=== PATIENT | female | born 1985 | race Caucasian/White ===

== ENCOUNTER 2019-10-26 15:59 | Outpatient (CLI) | payer OTHER, SELFPAY ==
--- NOTE | ~2019-10-26 | US_ITS ---
EXAMINATION: US pelvic complete w TV EXAM DATE: 10/26/2019 16:35 INDICATION: Ovarian cyst, family history of ovarian cancer. control implant. TECHNIQUE: Pelvic transabdominal and transvaginal sonogram was performed. There are multiple graysca le and Doppler images available for interpretation. Comparison is made to prior examination from 08/23. FINDINGS: Uterus measures 6.4 x 3.6 x 4.0 cm, and is morphologically normal. Endometrial stripe samaria sures 3 mm, within normal limits. There is no free pelvic fluid. Right adnexa: The ovary measures 4.1 x 2.8 x 4.1 cm, with an anechoic cystic lesion measuring 3.7 x 2 .4 x 3.5 cm probably the dominant follicle. Ovarian vascular flow confirmed. Left adnexa: The ovary measures 2.5 x 2.6 x 2.0 cm and is morphologically normal. Ovarian vascular fl ow confirmed. IMPRESSION: Right ovarian cystic lesion most likely the dominant follicle. Optional six-week follow-u p pelvic sonogram. Reviewed, dictated and finalized at location A. IMPRESSION: Right ovarian cystic lesion most likely the dominant follicle. Opti onal six-week follow-up pelvic sonogram.
== END 2019-10-26 16:00 ==
LOC: MICIMG 15:59
PROVIDERS: Visit Provider Obstetrics & Gynecology
DX: N83.209 Unspecified ovarian cyst, unspecified side (principal)
CPT/HCPCS: 76830; 76856

== ENCOUNTER 2020-01-28 12:50 | Outpatient (CLI) | payer OTHER, SELFPAY ==
--- NOTE | ~2020-01-28 | US_ITS ---
EXAMINATION: US pelvic complete w TV DATE: 01/28/2020 13:32 INDICATION: Right ovarian cyst Comparison:Ultrasound dated 10/26/2019 TECHNIQUE: Multiple transabdominal and endovaginal sonographic images of the pelvis performed. FINDINGS: The uterus measures 7.9 x 4 x 4.4 cm. The endometrial complex measures 4 mm. The right ovary is not clearly visualized. Left ovary is enlarged measuring 5.8 x 5.6 x 4.5 cm and co ntains 2 cysts, largest measuring 3.8 x 3.2 x 3.9 cm. There is no free fluid in the pelvis. There are no abnormal masses seen on either side. IMPRESSION: 1. Left ovarian cysts, largest measuring 3.9 cm maximum dimension. Reviewed, dictated and finalized at location A.
== END 2020-01-28 12:51 ==
PROVIDERS: PCP Obstetrics & Gynecology; Visit Provider Obstetrics & Gynecology
DX: N83.202 Unspecified ovarian cyst, left side (principal)
CPT/HCPCS: 76830; 76856

== ENCOUNTER 2022-11-11 15:59 | Emergency (ER) | payer OTHER, SELFPAY ==
[2022-11-11 16:07] VITALS: BP 124/88; PULSE 98; RESP 16; TEMP 36.7; O2SAT 100
--- NOTE | 2022-11-11 16:09 | ED.URI ---
HPI - URI/Sore Throat General Chief Complaint: Upper Respiratory Infection Stated Complaint: cough,congestion,ear pain,fatigue Time Seen by Provider: 11/11/22 16:09 Source: patient Mode of arrival: ambulatory Limitations: no limitations History of Present Illness HPI Narrative: 37-year-old female presents with complaint of nasal congestion, postnasal drainage, scratchy throat, cough for the past 3-4 days. Afebrile. States that symptoms for seem like they were related to allergies but then got progressively worse. Is using Flonase. Denies chest pain and shortness of breath. States she has a COVID test for work. All systems reviewed and negative except as noted above. Related Data Home Medications Medication Instructions Recorded Confirmed baclofen 20 mg tablet 20 mg PO DAILY 12/01/20 03/08/21 diclofenac sodium 75 mg 75 mg PO DAILY 12/01/20 03/08/21 tablet,delayed release cetirizine 10 mg tablet (Zyrtec) 10 mg PO DAILY PRN 02/28/21 03/08/21 duloxetine 60 mg capsule,delayed 60 mg PO DAILY 02/28/21 03/08/21 release (Cymbalta) fluticasone propionate 50 1 spray intranasal DAILY 02/28/21 03/08/21 mcg/actuation nasal spray,suspension hydrochlorothiazide 25 mg tablet 25 mg PO DAILY 02/28/21 03/08/21 lisinopril 20 mg tablet 20 mg PO DAILY 02/28/21 03/08/21 omeprazole 20 mg tablet,delayed 20 mg PO DAILY 02/28/21 03/08/21 release dextroamphetamine-amphetamine ER 20 mg PO DAILY 12/18/21 20 mg 24hr capsule,extend release (Adderall XR) Allergies Allergy/AdvReac Type Severity Reaction Status Date / Time No Known Allergies Allergy Verified 03/08/21 16:16 Review of Systems Review of Systems: CONSTITUTIONAL: Denies fever, chills, or sweats. EYES: Denies visual changes, redness, or discharge. ENT: Reports rhinorrhea, congestion, scratchy throat, ear pressure. CARDIOVASCULAR: Denies chest pain, palpitations, or edema. RESPIRATORY: Reports cough. Denies dyspnea. GASTROINTESTINAL: Denies abdominal pain, nausea, vomiting, or diarrhea. GENITOURINARY: Denies dysuria or hematuria. SKIN: Denies rash or itching. MUSCULOSKELETAL: Denies back pain, joint pain, or myalgia. NEUROLOGIC: Denies headache, numbness, or weakness. PSYCHIATRIC: Denies anxiety or depression. All other systems reviewed are negative, except as documented in HPI. PMFSH Surgical History Surgical History Hx of knee surgery Family History Family History Father Hypertension Family history of sleep apnea Other Depression Social History Social History Social History: vape Smoking status: Current every day smoker Tobacco type: e-cigarettes/vaping Alcohol intake: former Substance use type: marijuana Comments At time of signature, agree with nursing past medical, surgical, social and family history. There is no relevant family history pertinent to the presenting complaint. Exam Narrative: GENERAL: This is a well-nourished, well-developed patient, in no apparent distress. HEAD: normocephalic, atraumatic. EYES: PERRL. Sclera clear/white. Vision is grossly intact. EARS: External ears normal, auditory canals clear and without drainage, fluid bilateral TMs without erythema or perforation. NOSE: External nose normal with clear nasal drainage, no erythema or swelling to nares. THROAT: Mucous membranes moist, clear postnasal drainage. NECK: Neck supple, non-tender without lymphadenopathy, masses or thyromegaly. CARDIOVASCULAR: Regular rate and rhythm without murmurs, gallops, or rubs. RESPIRATORY: Very mild expiratory wheeze throughout all lung parker.. No wheezes, rales, or rhonchi. SKIN: warm, Dry, intact with no suspicious lesions or rash, good texture and turgor. NEURO: awake, alert, and oriented to person, place and time. There were no obvious focal neurologic abnormalities. EXT
== END 2022-11-11 16:41 | disposition home or self-care (01) ==
PROVIDERS: Emergency Provider Nurse Practitioner Family; PCP Hospitalist
DX: J30.9 Allergic rhinitis, unspecified (principal); R05.9 Cough, unspecified; F17.290 Nicotine dependence, other tobacco product, uncomplicated
CPT/HCPCS: 87081; 87804; 87880; 99213; G0463

== ENCOUNTER 2023-05-22 13:23 | Outpatient (CLI) | payer OTHER, SELFPAY ==
--- NOTE | 2023-05-22 14:30 | NEURO_ITS ---
Impression: # Complains of numbness of arms and legs. # Subtle evolving left Carpal Tunnel Syndrome. # Asymmetrical conduction velocities of peroneal nerves and posterior tibial nerves. # Polyphasic responses on proximal stimulation of left posterior tibial nerve suggestive of tibial neuropathy. # Needle/EMG exam without neurogenic changes. Nerve Conduction Studies Anti Sensory Summary Table Stim Site NR Peak (ms) P-T Amp (?V) Site1 Site2 Delta-P (ms) Dist (cm) Chaitanya (m/s) Left Median Anti Sensory (2-3nd Digit) Wrist 2.6 74.0 Wrist 2-3nd Digit 2.6 14.0 54 Wrist 2.6 58.5 Wrist 2-3nd Digit 2.6 14.0 54 Right Median Anti Sensory (2-3nd Digit) Wrist 2.8 61.6 Wrist 2-3nd Digit 2.8 14.0 50 Wrist 2.8 54.8 Wrist 2-3nd Digit 2.8 14.0 50 Left Radial Anti Sensory (Base 1st Digit) Wrist 2.0 29.1 Wrist Base 1st Digit 2.0 0.0 Right Radial Anti Sensory (Base 1st Digit) Wrist 2.9 28.6 Wrist Base 1st Digit 2.9 0.0 Left Sup Fibular Anti Sensory (Ant Lat Mall) 14 cm 3.7 3.7 14 cm Ant Lat Mall 3.7 16.0 43 Right Sup Fibular Anti Sensory (Ant Lat Mall) 14 cm 2.8 11.9 14 cm Ant Lat Mall 2.8 16.0 57 Left Sural Anti Sensory (Lat Mall) Calf 3.8 13.4 Calf Lat Mall 3.8 16.0 42 Right Sural Anti Sensory (Lat Mall) Calf 3.6 4.0 Calf Lat Mall 3.6 16.0 44 Left Ulnar Anti Sensory (5th Digit) Wrist 2.6 29.7 Wrist 5th Digit 2.6 14.0 54 Right Ulnar Anti Sensory (5th Digit) Wrist 2.9 35.5 Wrist 5th Digit 2.9 14.0 48 Motor Summary Table Stim Site NR Onset (ms) O-P Amp (mV) Site1 Site2 Delta-0 (ms) Dist (cm) Chaitanya (m/s) Left Median Motor (Abd Poll Brev) Wrist 4.2 3.5 Elbow Wrist 5.3 30.0 57 Elbow 9.5 3.7 Right Median Motor (Abd Poll Brev) Wrist 3.2 4.8 Elbow Wrist 4.4 25.0 57 Elbow 7.6 2.3 Left Peroneal Motor (Vastus Med) Ankle 3.9 2.3 Popit Ankle 8.1 43.0 53 Popit 12.0 1.8 Right Peroneal Motor (Vastus Med) Ankle 3.6 1.9 Popit Ankle 8.0 38.0 48 Popit 11.6 1.2 Left Tibial Motor (Abd Munoz Brev) Ankle 5.1 0.4 Knee Ankle 9.3 41.0 44 Knee 14.4 0.5 Right Tibial Motor (Abd Munoz Brev) Ankle 6.6 1.5 Knee Ankle 6.7 40.0 60 Knee 13.3 0.2 Left Ulnar Motor (Abd Dig Minimi) Wrist 3.0 4.6 A Elbow Wrist 5.3 30.0 57 A Elbow 8.3 1.7 Right Ulnar Motor (Abd Dig Minimi) Wrist 2.8 7.1 A Elbow Wrist 4.7 27.0 57 A Elbow 7.5 6.3 F Wave Studies NR F-Lat (ms) L-R F-Lat (ms) Left Median (Mrkrs) (Abd Poll Brev) 29.78 0.33 Right Median (Mrkrs) (Abd Poll Brev) 30.12 0.33 Left Peroneal (Mrkrs) (EDB) 54.70 0.43 Right Peroneal (Mrkrs) (EDB) 54.27 0.43 Left Tibial (Mrkrs) (Abd Hallucis) 55.67 1.29 Right Tibial (Mrkrs) (Abd Hallucis) 56.96 1.29 Left Ulnar (Mrkrs) (Abd Dig Min) 29.22 0.65 Right Ulnar (Mrkrs) (Abd Dig Min) 29.87 0.65 EMG Side Muscle Nerve Root Ins Act Fibs Amp Dur Recrt Comment Right 1stDorInt Ulnar C8-T1 Nml Nml Nml Nml Nml Right Ext Indicis Radial (Post Int) C7-8 Nml Nml Nml Nml Nml Right Ext Digitorum Radial (Post Int) C7-8 Nml Nml Nml Nml Nml Right BrachioRad Radial C5-6 Nml Nml Nml Nml Nml Right PronatorTeres Median C6-7 Nml Nml Nml Nml Nml
== END 2023-05-22 13:24 | disposition home or self-care (01) ==
LOC: ANHNEURO 13:24
PROVIDERS: PCP Hospitalist; Visit Provider Student in an Organized Health Care Education/Training Program
DX: G56.02 Carpal tunnel syndrome, left upper limb (principal); I45.89 Other specified conduction disorders; R20.0 Anesthesia of skin
CPT/HCPCS: 95886; 95913